=== PATIENT | male | born 1940 | race Caucasian/White ===

== ENCOUNTER → 2016-10-09 | Day surgery (SDC) | payer OTHER, MEDICARE ==
[~2016-10-09] VITALS: Ht 182.9 cm; Wt 90.7 kg
[~2016-10-09] MED LIST: ALLOPURINOL300 M1 PO; AMLODIPINE BESY10 M1 PO; AMOXICILLIN500 M2; CASODEX50 MG PO; CIPRO 500MG TA500 MG PO; FLOMAX0.4 M1 PO; QUINAPRIL HCL10 MG PO; QUINAPRIL HCL20 M1 PO
--- NOTE | 2016-10-09 21:41 | Operative Report ---
Operative/Inv Procedure Report Surgery Date: 10/09/16 Name of Procedure: cystoscopy;left ureteroscopy with retrograde pyelogram. urethral stricture dilatation. prostate biopsy (saturation) Pre-Operative Diagnosis: left hydronephrosis. elevated PSA Post-Operative Diagnosis: same Estimated Blood Loss: less than 50ml Surgeon/Elementary Supervisor: TED VILLAGOMEZ MD Anesthesia: laryngeal mask airway Drains: none Specimens: prostate biopsy cores (8) Complications: none Operative/Procedure Note Note: The patient was taken to the operating room and placed on the OR table in supine position. With the patient awake, timeout was performed, in order to confirm correct patient, procedure, laterality, and other pertinent information. After adequate anesthesia, and antibiotics, the patient was then placed in yellow-fin lithotomy stirrups, draped and prepped in the usual surgical fashion. A 22 [place] cystoscope sheath, with 30 angle lens was inserted into the urethra , under direct visualization. At the bulbar urethra, a significant urethral stricture was noted. The cystoscope was then removed. Using a well lubricated male urethral dilators, the stricture was dilated gently. Starting with a 14 [place] dilator, and advancing sequentially up to 24 [place] dilator, the bulbar urethral stricture was opened enough for the cystoscopy. The 22 [place] cystoscope sheath with a 30 angle lens was then reinserted into the urethra, and advanced into the bladder without significant difficulty. Upon entering the bladder, the bladder was noted to be mildly trabeculated, but free of tumor, free of stone. The patient is noted to have a very large middle lobe of his prostate which may have contributed to the obstruction of the left ureter orifice as this lobe laid atop the orifice making it difficult to visualize. Otherwise, both orifices were in their orthotopic position with clear efflux bilaterally. The left ureteral orifice was again located, and a [place]-tail open -ended stent was inserted into the urethral orifice. Retrograde pyelogram was performed revealing mild left hydroureter, no filling defect, and overall normal left renal pelvis and calyces. The tiger tail was removed, and contrast material drained quickly. The left ureteral orifice was then inserted with a 0.035 Glidewire, which was advanced into the renal pelvis without difficulty. Leaving the Glidewire in place, the cystoscope was removed. The flexible ureteroscope was railroaded over the gluidewire which was advanced into the bladder without difficulty. The flexible ureteroscope was advanced up the right ureter with direct visualization, following the gluidewire. Upon reaching the kidney, the gluide wire was removed. Subsequently, pyeloscopy and calyxoscopy, of the upper, middle, and lower poles revealed irregular and friable mucosa throughout the renal pelvis. No stone was seen. Selective cytology via the ureteroscope was performed and sent to pathology. The ureteroscope was then slowly extracted, revealing the ureter to be free of stone, stricture, or tumor. At this point the prostate biopsy in proceeded. The patient was then redraped and prepped in usual surgical fashion. Using digital manipulation and 18-gauge core needle biopsy (spring-loaded), core biopsy samples of the prostate at the right mid base and apex, and left mid base apex were obtained. Each specimen being labeled separately, they were then sent to pathology for analysis. Hemostasis was ensured with gentle pressure on the prostate. At the end of both procedures, All sponge needle and instrument count were correct at the end of the case. The bladder was then drained at the end of the case by inserting an 18 fr bacon (10cc balloon), which was later removed in the recovery room. The patient tolerated the procedure well, and was then taken to the recovery room in satisfactory condition. Findings: no tumor/stone on ureteroscopy Discharge Disposition: PACU CC: TED VILLAGOMEZ MD
--- NOTE | 2016-10-10 08:56 | RADIOLOGY REPORT ---
EXAMINATION: XR ABDOMEN CLINICAL INDICATION: Ureteroscopy and retrograde pyelograms. COMPARISON: None TECHNIQUE: 9 images of the abdomen. FINDINGS: 9 images of the abdomen was performed during uterine ureteroscopy portably in cystoscopy suite. These demonstrate contrast in a nondilated ureter and nondilated collecting system. The final picture shows what appears to be the proximal end of the stent curled in to a lower pole calyx. The distal end is not imaged. FLUORO TIME: 1:02 min KVP: 97 MAS:3.2 IMPRESSION: Spot films taken during ureteroscopy and retrograde pyelogram as described above.
== END ==
LOC: STS 01:35
DX: N13.30 Unspecified hydronephrosis (principal); N40.1 Benign prostatic hyperplasia with lower urinary tract symptoms; R31.29 Other microscopic hematuria; R97.20 Elevated prostate specific antigen [PSA]; N35.9 Urethral stricture, unspecified; N32.89 Other specified disorders of bladder; N13.4 Hydroureter; I10 Essential (primary) hypertension; M10.9 Gout, unspecified
CPT/HCPCS: 74000; 88305; J0696; J2250